=== PATIENT | male | born 1985 | race American Indian/Alaskan Native ===

== ENCOUNTER 2017-03-01 11:46 | Emergency (ER) | payer SELFPAY ==
[2017-03-01] MEDS ORDERED: DUONEB *Not for PRN Use IH ONE ×2 (12:16→16:07)
--- NOTE | 2017-03-01 12:18 | Emergency Department Report ---
Stated Complaint: STOVER/TIGHTNESS IN CHEST Time Seen by Provider: 03/01/17 12:15 - HPI History of Present Illness: PT c/o fluid in chest x 3-4 days also sinus pressure/ pain - ROS Review of Systems: + cough - wheezing - Exam Physical Exam: R lung sounds diminished No wheezing MSE screening note: Focused history and physical exam performed. Due to findings the following was ordered: ekg, xr, med ED Disposition for MSE Condition: Stable
--- NOTE | 2017-03-01 13:02 | XRay Report ---
PA and lateral chest: Chest pain/cough. There appears to be a focal linear area of atelectasis at the left lung base seen only in the frontal projection. The lungs otherwise appear generally clear. The heart is normal in size. There is no vascular congestion. Normal bony structures. Impression: Focal left basilar atelectasis.
--- NOTE | 2017-03-01 16:15 | Emergency Department Report ---
HPI - General Chief Complaint: Upper Respiratory Infection Time Seen by Provider: 03/01/17 12:15 - HPI HPI: Patient reports that he has been home in headache on and off to the front of his head with chest tightness and feels like he is having an asthma attack over the last 3-4 days. He said prior to this is been having nasal congestion or runny nose for about a week and a half. He said he took his albuterol but did not take any other medication. Headache is 3/10 and achy. He said it feels like pressure. Chest tightness comes and goes it gets better with his albuterol. He denies any fever or chills, nausea or vomiting. Also complaining of right flank pain at 4-10 that's achy. No [id number] medication taken. Denies any abdominal or testicular pain. Denies any urinary burning frequency or urgency. Denies any blood in his urine. Nothing Makes pain better and nothing makes it worse. ED Past Medical Hx - Past Medical History Previous Medical History?: Yes Hx Asthma: Yes - Surgical History Past Surgical History?: No - Family History Family history: hypertension - Social History Smoking Status: Current Every Day Smoker Substance Use Type: Alcohol, Prescribed Other Social History: single - Medications Home Medications: Home Medications Medication Instructions Recorded Confirmed Last Taken Type Gentamicin 0.3% Ophth Soln 1 drops OP Q4H #1 bottle 12/12/15 Unknown Rx Amoxicillin/K Clav Tab [Augmentin 1 tab PO Q12HR #20 tab 03/01/17 Unknown Rx 875 mg] Cetirizine HCl [ZyrTEC] 10 mg PO QAM #10 capsule 03/01/17 Unknown Rx Fluticasone [Flonase] 1 spray NS QDAY #1 bottle 03/01/17 Unknown Rx Naproxen [Naprosyn TAB] 500 mg PO BID PRN #12 tablet 03/01/17 Unknown Rx predniSONE [Deltasone] 50 mg PO QDAY #5 tab 03/01/17 Unknown Rx ED Review of Systems ROS: Stated complaint: STOVER/TIGHTNESS IN CHEST Other details as noted in HPI Comment: All other systems reviewed and negative Constitutional: no symptoms reported Eyes: denies: eye pain, eye discharge ENT: congestion (nasal congestion and runny nose). denies: ear pain, throat pain Respiratory: cough, wheezing. denies: shortness of breath, SOB with exertion, SOB at rest, stridor Cardiovascular: chest pain (chest tightness). denies: palpitations, dyspnea on exertion, edema, syncope Gastrointestinal: denies: abdominal pain, nausea, vomiting, diarrhea Genitourinary: other (right flank pain). denies: urgency, dysuria, frequency, hematuria, discharge, testicular pain, testicular mass Musculoskeletal: denies: back pain, joint swelling, arthralgia, myalgia Skin: denies: rash Neurological: headache. denies: numbness, paresthesias, confusion, abnormal gait, vertigo Physical Exam - Physical Exam Vital Signs: Vital Signs 03/01/17 03/01/17 03/01/17 12:15 16:00 16:07 Temperature 98.7 F Pulse Rate 96 H Pulse Rate [ 86 88 Bilateral] Respiratory 16 Rate Respiratory 16 16 Rate [Bilateral ] Blood Pressure 125/75 O2 Sat by Pulse 97 Oximetry General: This is a 31-year-old male well-nourished well-developed in no acute distress. Physical Exam: Head: Normocephalic, atraumatic, no abrasion, no bruising and no contusion. Eyes: Biateral pupils equal and reactive to light, bilateral EOM intact.. Bilateral conjunctival and sclera without injection, normal accommodation. Ears: Bilateral EAC without any redness drainage or swelling, Bilateral TM congested without any erythema .bilateral tragus is normal and nontender. No auricular abnormality. No Mastoid bones tenderness. Nose: Moist, pale and boggy with clear drainage. No frontal or maxillary sinus tenderness. Mouth: No pharyngeal exudate or erythema. Uvula is midline and oral airways patent. Moist . No peritonsillar abscesses. Tongue is normal Neck: Supple, No Cervical adenopathy, full range of motion and no C-spine tenderness. No swelling or tracheal deviation Cardiovascular: S1, S2. Regular rate and rhythm. No murmur. Capillary refill is less then 3 seconds. Lungs: Good wheezes into the upper lung huitron. No rhonchi or rales. No chest wall tenderness. Normal work of breathing . GI: Tender to palpate in all quadrants, no guarding or rebound tenderness, normal bowel sounds and no CVA tenderness bilaterally. Neurological: GCS of 15, alert and oriented 3. Speech is clear, no facial droop pain. Normal gait. Negative Romberg and pronator drift. No motor or sensory deficit and reflexes are normal. MSK: Strength 5/5 in all extremities. No joint deformity or crepitus. Normal inspection. Full range of motion to all extremities Extremities: No clubbing, cyanosis or edema. +2 pulses. No neurovascular compromise Skin: Clean, dry and intact. No rash or lesions. Psych: Normal mood and behavior. ED Course Vital Signs 03/01/17 03/01/17 03/01/17 12:15 16:00 16:07 Temperature 98.7 F Pulse Rate 96 H Pulse Rate [ 86 88 Bilateral] Respiratory 16 Rate Respiratory 16 16 Rate [Bilateral ] Blood Pressure 125/75 O2 Sat by Pulse 97 Oximetry - Reevaluation(s) Reevaluation #1: 03/01/17 17:13 She received Duoneb times one treatment in emergency room and Deltasone 60 mg by mouth and upon reevaluation of lungs, lungs sounds are clear and equal bilaterally. Patient is experiencing no chest tightness. His EKG is sinus rhythm at 86 Awaiting urinalysis results for complain of flank pain ED Medical Decision Making - Radiology Data Radiology results: report reviewed Chest x-ray with focal left basilar atelectasis and no other acute abnormality. - Medical Decision Making ED course: Patient here for right flank pain which started yesterday and was relieved by Motrin 800 mg in the emergency room. Urinalysis revealed patient without any urinary tract infection. He is also complaining of headache and chest tightness with nasal congestion. EKG sinus rhythm at 86 bpm and chest x- ray reveal left basilar atelectasis otherwise normal exam. Patient was given DuoNeb 1 treatment in emergency room and Deltasone 60 mg by mouth and upon reevaluation lung sounds are clear and he is not experiencing any chest tightness. I discussed the patient and his chest x-ray and urinalysis results and also diagnosis and treatment plan and he voiced understanding and in agreement. Patient discharged home to continue to use his albuterol nebulizer and inhaler, naproxen given for right flank pain, patient instructed to deep breathe and cough every 2-3 hours to expand his lungs due to left atelectasis. Patient placed on antibiotic Augmentin because overall symptoms has been going on for week and a half. Patient discharged home in stable condition with prescription for Augmentin to take yogurt, Zyrtec and Flonase to relieve nasal congestion and drainage, prednisone. I instructed him to follow up with his primary care physician in 2-3 days and if he does not have one to follow-up with [facility]. Critical care attestation.: If time is entered above; I have spent that time in minutes in the direct care of this critically ill patient, excluding procedure time. ED Disposition Clinical Impression: Chest tightness, Focal atelectasis Allergic rhinitis Qualifiers: Chronicity: acute Allergic rhinitis trigger: unspecified Allergic rhinitis seasonality: unspecified seasonality Qualified Code(s): J30.9 - Allergic rhinitis, unspecified Asthma exacerbation attacks Qualifiers: Asthma severity: mild Asthma persistence: intermittent Qualified Code(s): J45.21 - Mild intermittent asthma with (acute) exacerbation Headache Qualifiers: Headache type: unspecified Headache chronicity pattern: acute headache Intractability: not intractable Qualified Code(s): R51 - Headache Disposition: DC-01 TO HOME OR SELFCARE Is pt being admited?: No Does the pt Need Aspirin: No Condition: Stable Instructions: Asthma (ED), Allergic Rhinitis (ED), Acute Headache (ED), Chest Pain (ED) Additional Instructions: Please follow up with your primary care physician and if you do not have one you can follow-up with [facility] in 2-3 days you chest x-ray show you have left basilar atelectasis and that he needs to deep breath and cough q2-3 hours to expand lungs Your urine test was negative. Take antibiotic as prescribed Prescriptions: Amoxicillin/K Clav Tab [Augmentin 875 mg] 1 tab PO Q12HR #20 tab Cetirizine HCl [ZyrTEC] 10 mg PO QAM #10 capsule Fluticasone [Flonase] 1 spray NS QDAY #1 bottle Naproxen [Naprosyn TAB] 500 mg PO BID PRN #12 tablet PRN Reason: Pain predniSONE [Deltasone] 50 mg PO QDAY #5 tab Referrals: [facility] [Outside] - 2-3 Days Forms: Accompanied Note, Work/School Release Form(ED)
[2017-03-01] MEDS ORDERED: DELTASONE PO ONE (16:48)
[2017-03-01] MEDS ORDERED: MOTRIN PO ONE (16:48)
[2017-03-01 17:12] LABS: Bilirubin,Urine NEG (Negative); Blood,Urine NEG (Negative); Ketones,Urine NEG (Negative); Leukocyte Esterase,Urine NEG (Negative); Nitrite,Urine NEG (Negative); Protein,Urine <15 mg/dL mg/dL (Negative); Urobilinogen,Urine < 2.0 mg/dL (<2.0)
[2017-03-01 18:03] VITALS: BP 130/81
== END 2017-03-01 18:10 | disposition home or self-care (01) ==
LOC: ED 11:46
DX: R51 Headache (principal); R07.89 Other chest pain; J30.9 Allergic rhinitis, unspecified; J45.21 Mild intermittent asthma with (acute) exacerbation; J98.11 Atelectasis; F17.200 Nicotine dependence, unspecified, uncomplicated
CPT/HCPCS: 71020; 81001; 93005; 93010; 94640; 99284; J7512